=== PATIENT | male | born 1935 | race Caucasian/White ===

== ENCOUNTER 2024-11-18 00:16 | Emergency (ER) | payer MEDICARE, OTHER, SELFPAY ==
[2024-11-18 00:52] VITALS: BP 141/68
[2024-11-18 02:58] VITALS: BP 129/55
[2024-11-18 03:00] VITALS: BP 124/59
[2024-11-18 04:00] VITALS: BP 107/64
--- NOTE | 2024-11-18 04:41 | ED.GENMED ---
History of Present Illness
General
Chief Complaint: Fall
Source: patient, spouse and ambulance crew
Exam Limitations: none
Time Seen by Provider: 11/18/24 04:23
Nursing documentation reviewed up to this point in time: agreed with
History of Present Illness
History of Present Illness:
This is an 89-year-old gentleman who resides at home with his . He has history of ambulatory dysfunction, uses a walker to ambulate. He suffered a mechanical fall tonight, tripping over his pajama pants, falling forward and admits to striking
his forehead. No loss of consciousness. He denies headache, denies neck or back pain. No weakness or numbness.
He has history of A-fib chronically maintained on Eliquis.
He arrives via EMS.
Past History
Past History
ED Past Medical History: Arrthythmia, Cancer, HTN, Hypercholesterolemia and NIDDM
Social History
Tobacco: Non-smoker
Alcohol: None
Personal:
Living: with family
Employment: Retired
Family History
Family History: Other (Noncontributory)
Phy Exam
Physical Exam
Physical Exam:
TRAUMA EXAM:
VITAL SIGNS: Vital signs reviewed, cooperative. 89-year-old gentleman appears his stated age, bright and alert, pleasant, easily communicative and in no acute distress. is accompanying.
DISTRESS: No active disease
EYES: Pupils reactive, no orbital trauma
NOSE: No deformity or epistaxis
FACE AND SCALP: There is a small area of mild ecchymosis mid superior forehead/scalp. Few areas of crusting to the frontal scalp that appears chronic. No evidence of acute abrasions, no lacerations. External canals no blood
NECK: Supple nontender, full range of motion without difficulty nor pain.
BACK: Back nontender, pelvis stable to compression
RESPIRATORY: No distress, breath sounds normal, no tender chest wall
CARDIAC: No murmur, pulses equal and strong
ABDOMEN: Soft nontender bowel sounds normal
SKIN: Skin intact no bleeding, color normal
EXTREMITIES: Nontender, full range of motion without difficulty nor pain.
NEUROLOGICAL: Alert, oriented, no motor deficits
PSYCH: Mood affect normal
Course
Orders/Labs/Results
Orders:
Orders
11/18/24 01:04
CT Head W/o Iv Contrast Urgent
Comment:
Reason For Exam: fell, hit head, on eliquis
Vital Signs
Initial and Last Documented VS:
Initial Vital Signs
Temp Pulse Resp BP Pulse Ox
99.7 F 76 20 141/68 97
11/18/24 00:52 11/18/24 00:52 11/18/24 00:52 11/18/24 00:52 11/18/24 00:52
Last Documented Vital Signs
Temp Pulse Resp BP Pulse Ox
99.7 F 76 20 107/64 98
11/18/24 00:52 11/18/24 00:52 11/18/24 00:52 11/18/24 04:00 11/18/24 04:30
MDM/Problems Addressed
Differential Diagnosis Includes:
Patient suffered mechanical fall at home, has full recollection of the events.
Continues to offer no complaints.
Very minimal ecchymosis noted superior mid forehead. As patient maintained on Eliquis CT of the head obtained which shows no acute intracranial traumatic findings.
Will attempt to ambulate with walker and if successful will discharge to home.
Chronic conditions affecting care: Arrhythmia
*Radiology
Radiology exam reviewed: radiology read reviewed (CT of the head shows no acute traumatic findings)
*Pulse Oximetry
Patient hypoxic: no
*Critical Care Note
Total Time (30-74mins, 75-104mins- exclusive of procedures): Not Applicable
ED Attending Note
-
Portions of this chart may have been created with voice recognition software.� Occasional wrong word or��sound alike� substitutions may have occurred due to the inherent limitations of voice recognition software.
Discharge Plan
Departure
Patient Disposition: Home (Routine Discharge)
Date of Disposition: 11/18/24
Time of Disposition: 04:41
Patient with high blood pressure during this ER visit?: No
Condition: Good
Discharge Problem:
Fall at home, Minor closed head injury
Instructions: Preventing falls in adults
Prescriptions:
No Action
losartan 50 mg Tablet
50 mg PO DAILY
metformin 500 mg Tablet
1,500 mg PO DAILY
atenolol 25 mg Tablet
25 mg PO BID
tolterodine 2 mg Tablet
2 mg PO BID
ascorbic acid (vitamin C) [Vitamin C] 500 mg Tablet
500 mg PO DAILY
pantoprazole [Protonix] 40 mg Tablet,Delayed Release (Dr/Ec)
40 mg PO BID
buspirone 10 mg Tablet
10 mg PO Daily
indapamide 1.25 mg Tablet
1.25 mg PO DAILY
rosuvastatin 20 mg Tablet
20 mg PO HS
mirtazapine 7.5 mg Tablet
7.5 mg PO HS
cholecalciferol (vitamin D3) [Vitamin D3] 50 mcg (2,000 unit) Capsule
50 mcg PO DAILY
dutasteride-tamsulosin [Nishi] 0.5-0.4 mg Capsule, Er Multiphase 24 Hr
1 cap PO DAILY
Eliquis 2.5 mg Tablet
2.5 mg PO BID
Referrals:
UNKNOWN - PT DOES,NOT KNOW [Family Provider] - Call in 1-3 days for appt
Interventions
Interventions:
*Risk Screen - Suicide Last Done: 11/18/24 00:52
*General Assessment Last Done: 11/18/24 03:01
*Neglect/Abuse Screening Last Done: 11/18/24 03:01
*ED- Fall Risk Assessment Last Done: 11/18/24 03:01
*ED COVID-19 Vaccine History Last Done: 11/18/24 03:01
*Nursing Disposition Last Done: 11/18/24 05:09
ED-Musculoskeletal Assessment Last Done: 11/18/24 04:13
ED- Neurological Assessment Last Done: 11/18/24 04:13
ED-Skin Assessment Last Done: 11/18/24 04:13
Discharge Date and Time
Discharge Date/Time: 11/18/24 05:10
Print Language: POLISH
== END 2024-11-18 05:10 | disposition home or self-care (01) ==
LOC: EMR 00:16
PROVIDERS: EMERGENCY PHYSICIAN Emergency Medicine
DX: S09.90XA Unspecified injury of head, initial encounter (principal); W01.0XXA Fall on same level from slipping, tripping and stumbling without subsequent striking against object, initial encounter; Z79.01 Long term (current) use of anticoagulants
CPT/HCPCS: 99284; 70450